=== PATIENT | female | born 1975 | race Caucasian/White ===

== ENCOUNTER → 2016-12-05 | Outpatient (CLI) | payer OTHER ==
--- NOTE | 2016-12-06 11:05 | MM ---
Reason for exam: screening (asymptomatic). Last mammogram was performed 1 year and 1 month ago. History: Benign US breast aspiration single LT of the left breast, December 01, 2015. Taking hormonal contraceptives for 18 years. Physical Findings: A clinical breast exam by your physician is recommended on an annual basis and results should be correlated with mammographic findings. MG Screening Mammo w CAD Bilateral CC and MLO view(s) were taken. Prior study comparison: November 09, 2015, bilateral MG screening mammo w CAD. October 19, 2014, bilateral MG screening mammo w CAD. The breast tissue is extremely dense which could obscure a lesion on mammography. Previous mammotome biopsy in the left breast. There is chronic nodularity in the left breast, axilla correlates with simple cysts ultrasound 06/23/16. ASSESSMENT: Benign, BI-RAD 2 RECOMMENDATION: Routine screening mammogram of both breasts in 1 year.
== END | disposition home or self-care (01) ==
LOC: RADMAMWWP 07:52
PROVIDERS: ATTEND Family Medicine
DX: Z12.31 Encounter for screening mammogram for malignant neoplasm of breast (principal)

== ENCOUNTER → 2017-12-12 | Outpatient (CLI) | payer OTHER ==
--- NOTE | 2017-12-12 09:45 | MM ---
Reason for exam: additional evaluation requested from prior study. Last mammogram was performed 1 year ago. History: Benign US breast aspiration single LT of the left breast, December 01, 2015. Taking hormonal contraceptives for 18 years. Physical Findings: Nurse Summary: There is a 1cm nodule in the left breats at 3 o'clock (nurse ms). MG Diagnostic Mammo w CAD [facility] Bilateral CC and MLO view(s) were taken. Prior study comparison: December 05, 2016, bilateral MG screening mammo w CAD. November 09, 2015, bilateral MG screening mammo w CAD. The breast tissue is extremely dense which could obscure a lesion on mammography. Finding: There is a typically benign 19 x 18 x 15 mm equal density, obscured oval mass in the upper outer quadrant, posterior position of the left breast consistent with cysts on ultrasound. Previous mammotome biopsy in the left breast. No significant changes in finding since December 05, 2016 and November 09, 2015. These results were verbally communicated with the patient and result sheet given to the patient on 12/12/17. ASSESSMENT: Benign, BI-RAD 2 RECOMMENDATION: Routine screening mammogram of both breasts in 1 year.
--- NOTE | 2017-12-12 09:49 | USB ---
Reason for exam: additional evaluation requested from abnormal screening. History: Benign US breast aspiration single LT of the left breast, December 01, 2015. Taking hormonal contraceptives for 18 years. US Breast LT Left breast ultrasound includes all four quadrants, the retroareolar region and axilla. Finding demonstrates a 1.9 x 1.8 x 1.4cm oval, cystic lesion at 1 o'clock, a 2.9 x 3.0 x 1.3cm oval, cystic lesion at 2 o'clock and a 3.4 x 3.6 x 1.4cm oval, cystic lesion at 3 o'clock. These results were verbally communicated with the patient and result sheet given to the patient on 12/12/17. ASSESSMENT: Benign, BI-RAD 2 RECOMMENDATION: Routine screening mammogram of both breasts in 1 year.
== END | disposition home or self-care (01) ==
LOC: RADMAMWWP 08:13
PROVIDERS: ATTEND Family Medicine
DX: N63.20 Unspecified lump in the left breast, unspecified quadrant (principal)
CPT/HCPCS: 77066

== ENCOUNTER → 2018-12-21 | Outpatient (CLI) | payer OTHER ==
--- NOTE | 2018-12-23 12:02 | MM ---
Reason for exam: screening (asymptomatic). Last mammogram was performed 1 year ago. History: Benign US breast aspiration single LT of the left breast, December 01, 2015. Taking hormonal contraceptives for 18 years. Physical Findings: A clinical breast exam by your physician is recommended on an annual basis and results should be correlated with mammographic findings. MG 3D Screening Mammo W/Cad Bilateral CC and MLO view(s) were taken. Prior study comparison: December 12, 2017, bilateral MG diagnostic mammo w CAD [facility]. December 05, 2016, bilateral MG screening mammo w CAD. The breast tissue is extremely dense which could obscure a lesion on mammography. There is a large left breast mass in the upper outer quadrant at anterior depth circumscribed representing a cyst. Retroareolar mass is marked by a coil biopsy marker and is stable. More posterior depth masses are also stable on the left. No suspicious abnormality. No significant changes when compared with prior studies. ASSESSMENT: Benign, BI-RAD 2 RECOMMENDATION: Routine screening mammogram of both breasts in 1 year.
== END | disposition home or self-care (01) ==
LOC: RADMAMWWP 09:34
PROVIDERS: ATTEND Family Medicine
DX: Z12.31 Encounter for screening mammogram for malignant neoplasm of breast (principal)
CPT/HCPCS: 77063; 77067

== ENCOUNTER → 2020-01-30 | Outpatient (CLI) | payer OTHER ==
--- NOTE | 2020-01-30 13:48 | MM ---
Reason for exam: screening (asymptomatic). Last mammogram was performed 1 year and 1 month ago. History: Benign US breast aspiration single LT of the left breast, December 01, 2015. Taking hormonal contraceptives for 18 years. Physical Findings: A clinical breast exam by your physician is recommended on an annual basis and results should be correlated with mammographic findings. MG 3D Screening Mammo W/Cad Bilateral CC and MLO view(s) were taken. Prior study comparison: December 21, 2018, bilateral MG 3d screening mammo w/cad. December 12, 2017, bilateral MG diagnostic mammo w CAD [facility]. The breast tissue is heterogeneously dense. This may lower the sensitivity of mammography. Left biopsy marker noted. Possible medial posterior depth distortion. Partially obscured nearly 4.8cm left upper outer quadrant far posterior depth focal asymmetry over the pectoralis. Two additional left upper outer quadrant posterior depth circumscribed masses. ASSESSMENT: Incomplete: need additional imaging evaluation, BI-RAD 0 RECOMMENDATION: Special view mammogram of both breasts. If lesion persists on supplemental views, image directed ultrasound is recommended. [facility] will attempt to contact patient to return for supplemental views and ultrasound if indicated.
== END | disposition home or self-care (01) ==
LOC: RADMAMWWP 06:59
PROVIDERS: ATTEND Family Medicine
DX: Z12.31 Encounter for screening mammogram for malignant neoplasm of breast (principal)
CPT/HCPCS: 77063; 77067

== ENCOUNTER → 2020-02-05 | Outpatient (CLI) | payer OTHER ==
--- NOTE | 2020-02-05 11:57 | MM ---
Reason for exam: additional evaluation requested from abnormal screening. Last mammogram was performed less than 1 month ago. History: Benign US breast aspiration single LT of the left breast, December 01, 2015. Taking hormonal contraceptives for 18 years. Physical Findings: Nurse Summary: 0.5cm nodule in the left breast at 12 o'clock and 3 o'clock (nurse ms). MG 3D Work Up W/Cad [facility] Bilateral CC and MLO view(s) were taken. Prior study comparison: January 30, 2020, bilateral MG 3d screening mammo w/cad. December 21, 2018, bilateral MG 3d screening mammo w/cad. The breast tissue is extremely dense which could obscure a lesion on mammography. Finding: There is a 13 mm circumscribed round mass in the upper outer quadrant of the left breast and a small nodule. No distinct lesion in the right breast. These results were verbally communicated with the patient and result sheet given to the patient on 02/05/20. ASSESSMENT: Incomplete: need additional imaging evaluation, BI-RAD 0 RECOMMENDATION: Ultrasound of the left breast.
--- NOTE | 2020-02-05 12:01 | USB ---
Reason for exam: additional evaluation requested from abnormal screening. History: Benign US breast aspiration single LT of the left breast, December 01, 2015. Taking hormonal contraceptives for 18 years. US Breast Workup Limited LT Left limited breast ultrasound including focal area of concern, retroareolar and axilla demonstrates a 0.7 x 0.5 x 0.8cm oval cystic lesion at 12 o'clock, thin walled cyst, a 1.5 x 1.1 x 1.6cm oval, cystic lesion with echoes at 2 o'clock, stable size, a 1.3 x 1.1 x 1.3cm oval, hypoechoic lesion at 2 o'clock, new debris in thin walled cyst and a 1.2 x 0.4 x 1.2cm oval, solid, questionable node at 3 o'clock, prominent benign lymph node suspected. These results were verbally communicated with the patient and result sheet given to the patient on 02/05/20. ASSESSMENT: Suspicious, BI-RAD 4 RECOMMENDATION: Ultrasound core biopsy of the left breast. (+/- FNA) Called Dr. Skelton's office with mammographic findings and has scheduled an appointment for the patient for 03/17/20 at 4:[address] Colbert. Biopsy scheduled for 03/04/20 at 12:20. PRELIMINARY REPORT CALLED AND FAXED TO DR. COLBERT ON 02/05/20.
== END | disposition home or self-care (01) ==
LOC: RADMAMWWP 08:59
PROVIDERS: ATTEND Family Medicine
DX: R92.8 Other abnormal and inconclusive findings on diagnostic imaging of breast (principal)
CPT/HCPCS: 77062; 77066

== ENCOUNTER → 2020-03-31 | Outpatient (CLI) | payer OTHER | END | disposition home or self-care (01) | LOC: LABWHC1 09:55 | PROVIDERS: ATTEND Surgery | DX: Z11.59 Encounter for screening for other viral diseases (principal) | CPT/HCPCS: 87635 ==

== ENCOUNTER → 2020-04-02 | Day surgery (SDC) | payer OTHER ==
--- NOTE | 2020-04-02 10:28 | USB ---
EXAMINATION TYPE: US biopsy breast VAD LT DATE OF EXAM: 04/02/2020 CLINICAL HISTORY: R92.8 abn. mammogram. Abnormal ultrasound. History of prior benign left breast aspiration. TECHNIQUE: Ultrasound guided attempted fine-needle aspiration and subsequent core biopsy of left breast with clip placement. COMPARISON: Prior mammogram and ultrasound February 05, 2020. FINDINGS: The procedure of ultrasound guided core biopsy was explained to the patient. Benefits, alternatives, and risks were discussed. An informed consent was then obtained. The patient was placed in supine positioning for imaging and for the procedure. Preprocedure scanning redemonstrates oval hypoechoic anechoic lesion deep in the left breast at 2:00 position zone BC. The overlying skin was prepped and draped in usual sterile fashion. Lidocaine is used as anesthetic into the skin and subcutaneous tissue up to area of concern in the left breast. Attempts first made with 18-gauge spinal needle unsuccessful in ultrasound guided aspiration. Under ultrasound guidance, a vacuum assisted biopsy gun device was used to obtain 3 core samples. Following this, a biopsy clip was left in lesion under ultrasound guidance. The patient tolerated the procedure well without any immediate complication. The patient was kept in the radiology department for short stay after the procedure and then discharged home in stable condition. Postprocedure mammogram deferred due to current covid environment. IMPRESSION: Successful, uncomplicated ultrasound guided core biopsy of area of concern in the left breast after failed aspiration, full pathology results to follow. Low index of suspicion noted at time of procedure. Pathology Results: Benign LEFT BREAST, NEEDLE CORE BIOPSY: Fibrocystic spectrum lesion with prominent fibrous and edematous changes. Changes consistent with PASH (pseudoangiomatous hyperplasia). Recommendation Follow up ultrasound of the left breast in 6 months. RUBÉND
[2020-04-02 10:45] VITALS: BP 122/78; PULSE 97; RESP 16; TEMP 98.3
== END ==
LOC: RADUSWWP 08:07
PROVIDERS: ATTEND Surgery
DX: N60.12 Diffuse cystic mastopathy of left breast (principal); Z88.2 Allergy status to sulfonamides
CPT/HCPCS: 88305; 19083; A4648; J2001

== ENCOUNTER → 2020-10-04 | Outpatient (CLI) | payer OTHER ==
--- NOTE | 2020-10-04 10:36 | USB ---
Reason for exam: follow-up at short interval from prior study. History: Benign US biopsy breast VAD LT of the left breast, April 02, 2020. Benign US breast aspiration single LT of the left breast, December 01, 2015. Taking hormonal contraceptives for 18 years. Physical Findings: Nurse Summary: left upper outer quadrant asymmetrical thickening, movable, nodular (nurse mj). US Breast Limited LT Left limited breast ultrasound including focal area of concern, retroareolar and axilla demonstrates a 1.3 x 0.9 x 1.5cm oval, mixed lesion at 2 o'clock, a 0.8 x 0.8 x 0.9cm oval, cystic lesion at 2 o'clock, a 1.8 x 1.2 x 0.4cm mixed lesion at 3 o'clock and a 1.4 x 0.7 x 1.7cm oval, cystic lesion at the posterior nipple. Multiple cystic areas visualized. These results were verbally communicated with the patient and result sheet given to the patient on 10/04/20. ASSESSMENT: Benign, BI-RAD 2 RECOMMENDATION: Follow-up diagnostic mammogram of both breasts in 4 months. Ultrasound of the left breast in 4 months. Back on schedule for January 2021.
== END | disposition home or self-care (01) ==
LOC: RADUSWWP 09:34
PROVIDERS: ATTEND Surgery
DX: R92.8 Other abnormal and inconclusive findings on diagnostic imaging of breast (principal)

== ENCOUNTER → 2021-02-01 | Outpatient (CLI) | payer OTHER ==
--- NOTE | 2021-02-01 10:41 | MM ---
Reason for exam: additional evaluation requested from prior study. Last mammogram was performed 1 year ago. History: Benign US biopsy breast VAD LT of the left breast, April 02, 2020. Benign US breast aspiration single LT of the left breast, December 01, 2015. Taking hormonal contraceptives for 18 years. Physical Findings: Nurse did not find any significant physical abnormalities on exam. MG 3D Diag Mammo W/Cad [facility] Bilateral CC and MLO view(s) were taken. Prior study comparison: February 05, 2020, bilateral MG 3d work up w/cad [facility]. January 30, 2020, bilateral MG 3d screening mammo w/cad. Previous mammotome biopsy in the left breast. There is no discrete abnormality. No significant new findings when compared with previous films. These results were verbally communicated with the patient and result sheet given to the patient on 02/01/21. ASSESSMENT: Benign, BI-RAD 2 RECOMMENDATION: Routine screening mammogram of both breasts in 1 year.
--- NOTE | 2021-02-01 10:44 | USB ---
Reason for exam: follow-up at short interval from prior study. History: Benign US biopsy breast VAD LT of the left breast, April 02, 2020. Benign US breast aspiration single LT of the left breast, December 01, 2015. Taking hormonal contraceptives for 18 years. US Breast Limited LT Prior study comparison: October 04, 2020, left breast US breast limited LT. Left limited breast ultrasound including focal area of concern, retroareolar and axilla demonstrates a 1.2 x 1.0 x 1.3cm mixed lesion at 2 o'clock, a 0.9 x 0.8 x 0.9cm mixed lesion at 2 o'clock, a 1.7 x 0.5 x 1.3cm mixed lesion at 3 o'clock and a 1.8 x 0.9 x 1.6cm cystic lesion at the posterior nipple. Lesions present previously. These results were verbally communicated with the patient and result sheet given to the patient on 02/01/21. ASSESSMENT: Benign, BI-RAD 2 RECOMMENDATION: Routine screening mammogram of both breasts in 1 year.
== END | disposition home or self-care (01) ==
LOC: RADMAMWWP 08:51
PROVIDERS: ATTEND Surgery
DX: R92.8 Other abnormal and inconclusive findings on diagnostic imaging of breast (principal)
CPT/HCPCS: 77062; 77066

== ENCOUNTER → 2023-02-21 | Outpatient (CLI) | payer BC ==
--- NOTE | 2023-02-22 18:08 | MM ---
Reason for Exam: Screening (asymptomatic). Last screening mammogram was performed 12 month(s) ago. Patient History: Menarche at age 12. First Full-Term at age 27. Premenopausal. Hormonal Contraceptives for 18 years until age 36. 04/02/2020, Benign Core Biopsy on the left side. 12/01/2015, Benign Cyst Aspiration on the left side. Last menstrual period: 01/28/2023 Risk Values: Rohini 5 year model risk: 1.3%. NCI Lifetime model risk: 12.1%. Prior Study Comparison: 12/05/2016 Bilateral Screening Mammogram, [facility]. 12/12/2017 Bilateral Diagnostic Mammogram, [facility]. 12/21/2018 Bilateral Screening Mammogram, [facility]. 01/30/2020 Bilateral Screening Mammogram, [facility]. 02/05/2020 Bilateral Diagnostic Mammogram, [facility]. 02/01/2021 Bilateral Diagnostic Mammogram, [facility]. 02/20/2022 Bilateral Screening Mammogram, [facility]. Tissue Density: The breast tissue is extremely dense which could obscure a lesion on mammography. Findings: Analyzed By CAD. 2 microclips within the left breast from prior biopsies. There is no suspicious group of microcalcifications or new suspicious mass in either breast. Overall Assessment: Negative, BI-RAD 1 Management: Screening Mammogram of both breasts in 1 year. 1. Given breast density, consider supplementary screening with breast ultrasound. 2. Patient should continue monthly self breast exams. A clinical breast exam by your physician is recommended on an annual basis. 3. This exam should not preclude additional follow-up of suspicious palpable abnormalities. Electronically signed and approved by: Zari Gillespie M.D. Radiologist
== END | disposition home or self-care (01) ==
LOC: RADMAMWWP 07:45
PROVIDERS: ATTEND Obstetrics & Gynecology
DX: Z12.31 Encounter for screening mammogram for malignant neoplasm of breast (principal)
CPT/HCPCS: 77063; 77067

== ENCOUNTER → 2024-03-17 | Outpatient (CLI) | payer BC ==
--- NOTE | 2024-03-19 08:08 | MM ---
Reason for Exam: Screening (asymptomatic). Last screening mammogram was performed 12 month(s) ago. Patient History: Menarche at age 12. First Full-Term at age 27. Premenopausal. Hormonal Contraceptives for 18 years until age 36. 04/02/2020, Benign Core Biopsy on the left side. 12/01/2015, Benign Cyst Aspiration on the left side. Last menstrual period: 02/24/2024 Risk Values: Rohini 5 year model risk: 1.3%. NCI Lifetime model risk: 11.8%. Prior Study Comparison: 02/01/2021 Bilateral Diagnostic Mammogram, [facility]. 02/20/2022 Bilateral Screening Mammogram, [facility]. 02/21/2023 Bilateral MG 3D screening mammo w/cad, [facility]. Tissue Density: The breasts are heterogeneously dense, which may obscure small masses. Findings: Analyzed By CAD. Left breast biopsy clip. Right breast: There is no suspicious group of microcalcifications or new suspicious mass. Left breast: There is no suspicious group of microcalcifications or new suspicious mass. Overall Assessment: Negative, BI-RAD 1 Management: Screening Mammogram of both breasts in [address] [facility] will attempt to contact patient to return for supplemental views and ultrasound if indicated. Patient should continue monthly self-breast exams. A clinical breast exam by your physician is recommended on an annual basis. This exam should not preclude additional follow-up of suspicious palpable abnormalities. Note on Rohini scores and lifetime risk: 1. A Rohini score greater than 3% is considered moderate risk. If this is the case, consider specialist referral to assess eligibility for a risk reducing agent. 2. If overall lifetime risk for the development of breast cancer is 20% or higher, the patient may qualify for future screening with alternating mammogram and breast MRI. Electronically signed and approved by: Pb Blake DO
== END | disposition home or self-care (01) ==
LOC: RADMAMWWP 15:29
PROVIDERS: ATTEND Obstetrics & Gynecology
DX: Z12.31 Encounter for screening mammogram for malignant neoplasm of breast (principal)
CPT/HCPCS: 77063; 77067

== ENCOUNTER → 2025-04-02 | Outpatient (CLI) | payer BC ==
--- NOTE | 2025-04-03 07:44 | MM ---
Reason for Exam: Screening (asymptomatic). Last mammogram was performed 1 year(s) and 1 month(s) ago. Patient History: Menarche at age 12. First Full-Term at age 27. Premenopausal. Hormonal Contraceptives for 18 years until age 36. 04/02/2020, Benign Core Biopsy on the left side. 12/01/2015, Benign Cyst Aspiration on the left side. Risk Values: Rohini 5 year model risk: 1.3%. NCI Lifetime model risk: 11.6%. Prior Study Comparison: 02/20/2022 Bilateral Screening Mammogram, [facility]. 02/21/2023 Bilateral MG 3D screening mammo w/cad, [facility]. 03/17/2024 Bilateral MG 3D screening mammo w/cad, [facility]. Tissue Density: The breasts are extremely dense, which lowers the sensitivity of mammography. Findings: Analyzed By CAD. There are 2 biopsy clips in the left breast. There is no suspicious group of microcalcifications or new suspicious mass in either breast. Overall Assessment: Benign, BI-RAD 2 Management: Screening Mammogram of both breasts in 1 year. Some advise annual bilateral breast ultrasound surveillance and/or contrast enhanced mammography in patient with background extremely dense tissue. Patient should continue monthly self-breast exams. A clinical breast exam by your physician is recommended on an annual basis. This exam should not preclude additional follow-up of suspicious palpable abnormalities. Note on Rohini scores and lifetime risk: 1. A Rohini score greater than 3% is considered moderate risk. If this is the case, consider specialist referral to assess eligibility for a risk reducing agent. 2. If overall lifetime risk for the development of breast cancer is 20% or higher, the patient may qualify for future screening with alternating mammogram and breast MRI. [facility], , 04/03/2025 7:41 AM. Electronically signed and approved by: José Marx M.D.
== END | disposition home or self-care (01) ==
LOC: RADMAMWWP 16:26
PROVIDERS: ATTEND Obstetrics & Gynecology
DX: Z12.31 Encounter for screening mammogram for malignant neoplasm of breast (principal); R92.343 Mammographic extreme density, bilateral breasts; Z92.0 Personal history of contraception
CPT/HCPCS: 77063; 77067